=== PATIENT | male | born 1935 | race Caucasian/White ===

== ENCOUNTER 2016-06-26 05:18 | Day surgery (SDC) | payer MEDICARE ==
[~2016-06-26 05:18] MED LIST: ALDACTONE25 M1 PO; ALEVE220 M4 PO; ASPIR-TRIN325 M2 PO; AUGMENTIN 875-1 EAC2 PO; BLEPHAMIDE EYE3.5 G1 EACH EYE; CELEBREX200 M1 PO; GATIFLOXACIN2.5 ML OP; GENTEAL RIGHT EYE; HYDROCHLOROTH12.5 M2 PO; HYDROCHLOROTH12.5 M3 PO; LOPRESSOR50 M1 PO; NORVASC10 M2 PO; REFRESH P.M. O3.5 G2 OP; STOOL SOFTNER PO; TOPROL XL50 M1 PO; TYLENOL325 M2 PO; ULTRAM50 M1 PO; VALSARTAN-HCTZ1 EA13 PO; VALSARTAN320 MG PO
[2016-06-26 06:20] LABS: BASO % 1.3 % (0-2); BASO ABSOLUTE COUNT 0.1 tho/cmm (0.0-0.2); EOS % 9.3 % (0-7); EOSINOPHIL ABSOLUTE COUNT 0.6 tho/cmm (0.0-0.7); HCT-HEMATOCRIT 38.6 % (36.0-53.5); HGB-HEMOGLOBIN 13.8 gm/dl (13.5-17.0); IMMATURE GRANULOCYTES ABSOLUTE 0.03 tho/cmm (0-0.03); IMMATURE GRANULOCYTES PERCENT 0.5 % (0-0.3); LYMPH % 24.2 % (20-45); LYMPH ABSOLUTE COUNT 1.5 tho/cmm (0.8-4.5); MCH (MEAN CORPUSCULAR HGB) 33.2 pg (28.0-32.0); MCHC MEAN CORPUSCULAR HGB CONC 35.8 % (32.0-36.0); MCV (MEAN CELL VOLUME) 92.8 fl (82.0-96.0); MEAN PLATELET VOLUME 10.7 cmc (9.4-12.4); MONO % 9.3 % (0-12); MONOCYTE ABSOLUTE COUNT 0.6 tho/cmm (0.0-1.2); NEUTROPHIL ABSOLUTE COUNT 3.5 tho/cmm (1.6-8.0); NEUTROPHIL-AUTOMATED 3.5 tho/cmm (1.6-8.0); NEUTROPHILS % 55.4 % (40-80); PLATELET COUNT 167 tho/cmm (150-450); RED BLOOD COUNT 4.16 mil/cmm (4.40-5.70); RED CELL DISTRIBUTION WIDTH 12.7 % (12.4-16.4); WHITE BLOOD COUNT 6.3 tho/cmm (4.0-10.0)
[2016-06-26 06:23] LABS: PROTHROMBIN TIME 11.2 SECONDS (9.0-13.6)
[2016-06-26 06:31] LABS: ANION GAP 14 mmol/L (0-20); BLOOD UREA NITROGEN 22 mg/dl (6-24); CALCIUM 8.6 mg/dl (8.5-10.5); CARBON DIOXIDE-VENOUS 23 mmol/L (22-32); CHLORIDE 107 mmol/l (96-110); CREATININE 1.19 mg/dl (0.60-1.30); GLUCOSE 126 mg/dL (70-110); SODIUM 139 mmol/L (135-145); eGFR VALUE FOR BLACK 67 mL/Min
[2016-06-26 06:35] LABS: POTASSIUM 4.5 mmol/L (3.7-5.1)
[2016-07-03] MEDS ORDERED: CILOSTAZOL50 M1 PO (08:32)
[2016-07-03] MEDS ORDERED: CILOSTAZOL100 M1 PO (09:24)
== END 2016-06-26 14:11 ==
LOC: RADSP 05:18 → SHSC 05:23
PROVIDERS: Surgery Vascular Surgery
PROC: B410ZZZ Fluoroscopy of Abdominal Aorta (ICD-10-PCS; principal; 2016-06-26)
PROC: B41FZZZ Fluoroscopy of Right Lower Extremity Arteries (ICD-10-PCS; 2016-06-26)
DX: L97.519 Non-pressure chronic ulcer of other part of right foot with unspecified severity (principal); I73.9 Peripheral vascular disease, unspecified; I10 Essential (primary) hypertension; Z79.899 Other long term (current) drug therapy; Z85.828 Personal history of other malignant neoplasm of skin; Z90.49 Acquired absence of other specified parts of digestive tract; Z96.652 Presence of left artificial knee joint; Z95.2 Presence of prosthetic heart valve; Z98.890 Other specified postprocedural states
CPT/HCPCS: C1760; C1769; J2250; J3010; J7030; Q9967